=== PATIENT | male | born 1980 ===

== ENCOUNTER 2019-02-11 17:56 | Emergency (ER) | payer OTHER ==
[~2019-02-11] VITALS: Ht 162.6 cm; Wt 72.6 kg
[~2019-02-11 17:56] MED LIST: ASACOL; PREDNISONE20 MG PO
[2019-02-11] MEDS ORDERED: SINGULEAR (18:37)
[2019-02-11] MEDS ORDERED: TESALON (18:37)
[2019-02-11] MEDS ORDERED: [UNRECOGNIZED DRUG - OTHER] (18:38)
== END 2019-02-11 20:58 | disposition home or self-care (01) ==
LOC: ER 17:56
DX: J06.9 Acute upper respiratory infection, unspecified (principal)

== ENCOUNTER → 2022-06-07 | Emergency (ER) | payer OTHER ==
[~2022-06-07] VITALS: Ht 162.6 cm; Wt 69.9 kg
[~2022-06-07] MED LIST changes: +DUTASTERIDE-TA1 EACH PO; +ROGAINE60 GM TOP; +SINGULEAR; +TESALON; +[UNRECOGNIZED DRUG - OTHER]
== END | disposition home or self-care (01) ==
LOC: ER 07:58
DX: R53.81 Other malaise (principal); R00.2 Palpitations; R07.89 Other chest pain

== ENCOUNTER 2022-09-02 13:08 | Emergency (ER) | payer OTHER ==
[~2022-09-02] VITALS: Ht 162.6 cm; Wt 69.9 kg
[2022-09-02] MEDS ORDERED: DUI500 PO (15:07)
== END 2022-09-02 15:20 | disposition home or self-care (01) ==
LOC: ER 13:08
DX: R50.9 Fever, unspecified (principal); Z91.011 Allergy to milk products; Z91.018 Allergy to other foods; Z20.822 Contact with and (suspected) exposure to COVID-19

== ENCOUNTER 2023-03-11 23:32 | Inpatient (IN) | payer OTHER ==
[~2023-03-11] VITALS: Ht 162.6 cm; Wt 70.8 kg
[~2023-03-11 23:32] MED LIST changes: +DUI500 PO
[2023-03-11] MEDS ORDERED: PREDNISONE20 M1 PO (23:44)
[2023-03-11] MEDS ORDERED: DICYCLOMINE HCL20 MG PO (23:44)
[2023-03-12 01:39] LABS: HEMATOCRIT 42.4 % (39.0-48.0); HEMOGLOBIN 14.3 g/dL (13-16.00); MEAN CELL VOLUME 86.6 fL (80.0-100.00); MEAN CORPUSCULAR HEMOGLOBIN 29.2 pg (27.00-32.0); MEAN CORPUSCULAR HGB CONC 33.7 g/dl (32.0-36.0); PLATELET COUNT 465 K/uL (150-450); RED BLOOD COUNT 4.89 M/uL (4.00-6.00); RED CELL DISTRIBUTION WIDTH 13.7 % (11.5-14.5)
[2023-03-12 01:59] LABS: PARTIAL THROMBOPLASTIN TIME 23.4 SECONDS (22.0-34.0); PROTHROMBIN TIME 10.5 SECONDS (9.0-11.5)
[2023-03-12 02:02] LABS: ALBUMIN 3.2 gm/dL (3.4-5.0); BILIRUBIN TOTAL 0.27 mg/dL (0.3-1.2); CALCIUM 8.9 mg/dL (8.5-10.1); CREATININE SERUM 1.11 mg/dL (0.70-1.30); GLOBULINA 4.2 G/DL (2.4-3.5); POTASSIUM 3.03 mEq/L (3.5-5.1); TOTAL PROTEIN 7.4 gm/dL (6.4-8.2)
[2023-03-12 02:47] LABS: PH,URINE 5.5 (5.0-8.0); URINE APPEARANCE Clear; URINE BILIRRUBIN Negative (NEGATIVE); URINE BLOOD Negative; URINE COLOR Yellow; URINE GLUCOSE Negative (NEGATIVE); URINE LEUKOCYTE Negative; URINE NITRATE Negative; URINE PROTEIN Negative (NEGATIVE); URINE UROBILINOGEN 0.2 E.U./dl
[2023-03-12 02:52] LABS: URINE BACTERIA 6.2 uL (0.0-1933); URINE EPITHELIAL CELLS 2.6 uL (0.0-38.8); URINE WBC 4.1 uL (0.0-23.2)
[2023-03-12 19:37] LABS: LDH 216 U/L (87-241); PHOSPHOKINASE CREATININE 266 U/L (39-308)
[2023-03-13 04:35] LABS: HEMATOCRIT 38.4 % (39.0-48.0); HEMOGLOBIN 13.3 g/dL (13-16.00); MEAN CELL VOLUME 86.4 fL (80.0-100.00); MEAN CORPUSCULAR HEMOGLOBIN 29.8 pg (27.00-32.0); MEAN CORPUSCULAR HGB CONC 34.5 g/dl (32.0-36.0); PLATELET COUNT 365 K/uL (150-450); RED BLOOD COUNT 4.45 M/uL (4.00-6.00); RED CELL DISTRIBUTION WIDTH 14.3 % (11.5-14.5)
[2023-03-13 04:53] LABS: INR 1.26; PARTIAL THROMBOPLASTIN TIME 33.9 SECONDS (22.0-34.0)
[2023-03-13 04:58] LABS: LDH 199 U/L (87-241); PHOSPHOKINASE CREATININE 402 U/L (39-308)
[2023-03-13 05:06] LABS: ALBUMIN 2.7 gm/dL (3.4-5.0); BILIRUBIN TOTAL 0.84 mg/dL (0.3-1.2); BILIRUBIN,CONJUGATED 0.23 mg/dL (0.0-0.2); BILIRUBIN,UNCONJUGATED 0.61 mg/dL (0.0-0.6); CALCIUM 9.1 mg/dL (8.5-10.1); CHOL HDL RATIO 3.4 (0-5.0); CREATININE SERUM 0.93 mg/dL (0.70-1.30); GFR 89.54; GLOBULINA 3.5 G/DL (2.4-3.5); POTASSIUM 3.99 mEq/L (3.5-5.1); TOTAL PROTEIN 6.2 gm/dL (6.4-8.2)
[2023-03-13 05:08] LABS: C-REACTIVE PROTEIN 22.2 MG/DL (0.00-0.29); ERYTHROCYTE SEDIMENTATION RATE 71 mm/hr
[2023-03-13 08:46] LABS: URINE APPEARANCE Clear; URINE BILIRRUBIN Negative (NEGATIVE); URINE BLOOD Negative; URINE COLOR Yellow; URINE GLUCOSE Negative (NEGATIVE); URINE LEUKOCYTE Negative; URINE NITRATE Negative; URINE PROTEIN Trace (NEGATIVE); URINE UROBILINOGEN 0.2 E.U./dl
[2023-03-13 08:48] LABS: URINE EPITHELIAL CELLS 3.6 uL (0.0-38.8); URINE RBC 6.6 uL (0.0-20.8)
[2023-03-13 16:00] LABS: LDH 274 U/L (87-241); PHOSPHOKINASE CREATININE 444 U/L (39-308)
[2023-03-17 07:06] LABS: HEMATOCRIT 43.6 % (39.0-48.0); HEMOGLOBIN 14.9 g/dL (13-16.00); MEAN CELL VOLUME 88.7 fL (80.0-100.00); MEAN CORPUSCULAR HEMOGLOBIN 30.3 pg (27.00-32.0); MEAN CORPUSCULAR HGB CONC 34.1 g/dl (32.0-36.0); PLATELET COUNT 381 K/uL (150-450); RED BLOOD COUNT 4.91 M/uL (4.00-6.00); RED CELL DISTRIBUTION WIDTH 13.7 % (11.5-14.5)
[2023-03-17 07:31] LABS: ALBUMIN 2.7 gm/dL (3.4-5.0); BILIRUBIN TOTAL 1.02 mg/dL (0.3-1.2); CALCIUM 9.4 mg/dL (8.5-10.1); CREATININE SERUM 0.98 mg/dL (0.70-1.30); GFR 84.29; GLOBULINA 4.1 G/DL (2.4-3.5); POTASSIUM 4.55 mEq/L (3.5-5.1); TOTAL PROTEIN 6.8 gm/dL (6.4-8.2)
== END 2023-03-19 17:45 | disposition home or self-care (01) | DRG 394 ==
LOC: ER 23:32 → MEDJ 03-12 18:18
PROVIDERS: General Practice; Internal Medicine Infectious Disease; ADMIT Internal Medicine; ATTEND Internal Medicine
PROC: BW21ZZZ Computerized Tomography (CT Scan) of Abdomen and Pelvis (ICD-10-PCS; principal; 2023-03-12)
PROC: BW21ZZZ Computerized Tomography (CT Scan) of Abdomen and Pelvis (ICD-10-PCS; 2023-03-17)
DX: K63.1 Perforation of intestine (nontraumatic) (principal); K50.90 Crohn's disease, unspecified, without complications; D72.829 Elevated white blood cell count, unspecified; E87.6 Hypokalemia; R74.01 Elevation of levels of liver transaminase levels; K52.9 Noninfective gastroenteritis and colitis, unspecified